=== PATIENT | female | born 1955 | race Caucasian/White ===

== ENCOUNTER 2017-07-12 07:21 | Observation (INO) | payer OTHER ==
[2017-07-12] MEDS: ISOSULFAN BLUE 1% 5 ML INJ SC
[2017-07-12] MEDS: STERILE WATER 1L IRRIG BTL IRR
[2017-07-12] MEDS: SOD CHLORIDE 0.9% 1,000 ML IV (06:00)
[2017-07-12] MEDS ORDERED: ISOSULFAN BLUE 1% 5 ML INJ SC (12:24)
[2017-07-12] MEDS ORDERED: FENTAnyl 50 MCG/ML VIAL (12:25)
[2017-07-12] MEDS ORDERED: PROPOFOL 20 ML (12:51)
[2017-07-12] MEDS ORDERED: DEXAMETHASONE 4 MG/ML 1 ML INJ (12:51)
[2017-07-12] MEDS ORDERED: ONDANSETRON 4 MG INJ (12:51)
[2017-07-12] MEDS ORDERED: LIDOCAINE 2% (SDV) 5 ML INJ (12:51)
[2017-07-12] MEDS ORDERED: CEFAZOLIN 1 GM INJ (12:52)
[2017-07-12] MEDS: CEFAZOLIN 2 GM/50 ML (PMX) 50 ML IVPB (12:53)
[2017-07-12] MEDS ORDERED: ACETAMINOPHEN 1000MG/100ML IV 100 ML (12:56)
[2017-07-12] MEDS ORDERED: morphine (1 MG/ML) 10ML SYRINGE IV (13:30)
[2017-07-12] MEDS ORDERED: MEPERIDINE 25 MG INJ IV (13:30)
[2017-07-12] MEDS ORDERED: ONDANSETRON 4 MG INJ IV ×2 (13:30→14:00)
[2017-07-12] MEDS ORDERED: FENTAnyl 50 MCG/ML VIAL IV ×2 (13:30)
[2017-07-12] MEDS ORDERED: LABETALOL HCL 20MG INJ IV (13:30)
[2017-07-12] MEDS ORDERED: hydrALAzine 20 MG INJ IV (13:30)
[2017-07-12] MEDS ORDERED: ACETAMINOPHEN 1000MG/100ML IV 100 ML IVPB (14:00)
[2017-07-12] MEDS ORDERED: morphine 2 MG INJ IV (14:00)
[2017-07-12] MEDS ORDERED: KETOROLAC 30 MG INJ (14:10)
[2017-07-12] MEDS: D5W-0.45 NACL + KCL 20 MEQ 1,000 ML IV (18:00)
[2017-07-12] MEDS: ATORVASTATIN 20 MG TAB PO (22:18)
[2017-07-12] MEDS: CALCIUM/VITAMIN D (500/200) TAB PO (22:18)
[2017-07-13] MEDS: 1/2 NS + KCL 20 MEQ 1,000 ML IV ×2 (00:11→08:28)
[2017-07-13 06:11] LABS: ADD MAN DIFF? NO
[2017-07-13 06:15] LABS: BASOPHILS % 0.4 % (0.0-2.0); LYMPHOCYTES # 1.3 10^3/ul (0.8-2.9); LYMPHOCYTES % 16.1 % (15.0-51.0); MEAN CORPUSCULAR HEMOGLOBIN 30.4 pg (29.0-33.0); MEAN CORPUSCULAR HGB CONC 32.4 g/dl (32.0-37.0); MEAN CORPUSCULAR VOLUME 93.9 fl (82.0-101.0); MEAN PLATELET VOLUME 10.9 fl (7.4-10.4); MONOCYTE # 0.5 10^3/ul (0.3-0.9); MONOCYTES % 5.8 % (0.0-11.0); NEUTROPHILS % 77.2 % (39.0-77.0); PLATELET COUNT 260 10^3/UL (140-415); RED BLOOD COUNT 3.62 10^6/ul (4.20-5.40); RED CELL DISTRIBUTION WIDTH 12.8 % (11.5-14.5)
[2017-07-13 06:15] LABS: WHITE BLOOD COUNT 7.7 10^3/ul (4.8-10.8)
[2017-07-13 06:48] LABS: ANION GAP 14 (8-16); BLOOD UREA NITROGEN 15 mg/dl (7-20); CARBON DIOXIDE 23 mmol/L (21-31); CHLORIDE 111 mmol/L (97-110); CREATININE 0.47 mg/dl (0.44-1.00); GLUCOSE 146 mg/dl (70-220); POTASSIUM 4.6 mmol/L (3.5-5.1); SODIUM 143 mmol/L (135-144)
[2017-07-13 07:08] LABS: HEMOGLOBIN A1C 6.6 % (0-5.9)
[2017-07-13] MEDS: LISINOPRIL 20 MG TAB PO (08:29)
[2017-07-13] MEDS: CALCIUM/VITAMIN D (500/200) TAB PO (08:29)
[2017-07-13] MEDS: ATENOLOL 25 MG TAB PO (08:29)
== END 2017-07-13 15:47 | disposition home or self-care (01) ==
LOC: SDS 07:21 → REC 13:45 → PP2 16:00
PROVIDERS: Surgery Surgical Oncology
DX: C50.912 Malignant neoplasm of unspecified site of left female breast (principal); Z17.1 Estrogen receptor negative status [ER-]; E78.5 Hyperlipidemia, unspecified; E11.9 Type 2 diabetes mellitus without complications; I10 Essential (primary) hypertension
CPT/HCPCS: 19301; 71045; 80048; 82962; 83036; 85025; 88307; 88331; 88342; 93005; G0378

== ENCOUNTER 2017-08-23 08:37 | Observation (INO) | payer OTHER ==
[~2017-08-23 08:37] MED LIST: SOD CHLORIDE 0.9% 1,000 ML IV
[2017-08-23] MEDS ORDERED: NALOXONE (0.4 MG/ML) INJ IV (13:30)
[2017-08-23] MEDS: CEFAZOLIN 1 GM/50 ML (PMX) 50 ML IVPB (13:35)
[2017-08-23] MEDS ORDERED: DEXAMETHASONE 4 MG/ML 1 ML INJ (13:48)
[2017-08-23] MEDS ORDERED: SUCCINYLCHOLINE CHLORIDE 100 MG/5 ML SYG IV (13:48)
[2017-08-23] MEDS ORDERED: PROPOFOL 20 ML (13:48)
[2017-08-23] MEDS ORDERED: GLYCOPYRROLATE 0.4 MG INJ (13:49)
[2017-08-23] MEDS ORDERED: ONDANSETRON 4 MG INJ (13:49)
[2017-08-23] MEDS ORDERED: NEOSTIGMINE 3 MG/3 ML SYRINGE (13:49)
[2017-08-23] MEDS ORDERED: hydrALAzine 20 MG INJ (14:20)
[2017-08-23] MEDS ORDERED: D5W-0.45 NACL + KCL 20 MEQ 1,000 ML IV (14:39)
[2017-08-23] MEDS: morphine 2 MG INJ IV ×2 (15:33→18:20)
[2017-08-23] MEDS: ONDANSETRON 4 MG INJ IV (15:33)
[2017-08-23] MEDS: ACETAMINOPHEN 1000MG/100ML IV 100 ML IVPB (15:37)
[2017-08-23] MEDS: HYDROmorphONE 0.5 MG/0.5 ML SYG IV (15:52)
[2017-08-23] MEDS ORDERED: DEXTROSE 50% 50 ML SYRINGE IV ×2 (18:00)
[2017-08-23] MEDS ORDERED: GLUCAGON 1 MG INJ IM (18:00)
[2017-08-23] MEDS ORDERED: GLUCOSE GEL 15 GRAM TUBE BUCCAL (18:00)
[2017-08-23] MEDS ORDERED: GLUCOSE GEL 15 GRAM TUBE PO ×2 (18:00)
[2017-08-23] MEDS: SOD CHLORIDE 0.45% 1,000 ML IV (18:20)
[2017-08-23] MEDS: ATORVASTATIN 20 MG TAB PO (20:46)
[2017-08-23] MEDS: INSULIN ASPART [NOVOLOG] 3 ML PEN SC (20:46)
[2017-08-23] MEDS ORDERED: INSULIN ASPART [NOVOLOG] 3 ML PEN SC (21:00)
[2017-08-24] MEDS: SOD CHLORIDE 0.45% 1,000 ML IV (07:50)
[2017-08-24] MEDS: INSULIN ASPART [NOVOLOG] 3 ML PEN SC ×2 (07:50→11:40)
[2017-08-24] MEDS ORDERED: LISINOPRIL 20 MG TAB PO (09:00)
[2017-08-24] MEDS: ATENOLOL 25 MG TAB PO (09:00)
[2017-08-24] MEDS: metFORMIN 500 MG TAB PO (09:50)
[2017-08-24] MEDS: SOD CHLORIDE 0.9% 1,000 ML IV (10:59)
[2017-08-25] MEDS ORDERED: LISINOPRIL 10 MG TAB PO (09:00)
== END 2017-08-24 15:30 | disposition home or self-care (01) ==
LOC: SDS 08:37 → MS1 14:41
PROVIDERS: Surgery Surgical Oncology
DX: D05.12 Intraductal carcinoma in situ of left breast (principal); I10 Essential (primary) hypertension; E11.9 Type 2 diabetes mellitus without complications; E78.5 Hyperlipidemia, unspecified
CPT/HCPCS: 19307; 71045; 82962; 88307; 88331; 93005